=== PATIENT | female | born 1935 | race Asian ===

== ENCOUNTER 2018-07-28 11:56 | Emergency (ER) | payer MEDICARE, OTHER ==
[~2018-07-28] VITALS: Ht 157.5 cm; Wt 65.8 kg
[~2018-07-28 11:56] MED LIST: CALCIUM CITRAT200 MG PO; COZAAR25 MG PO; CRESTOR5 MG PO; METOPROLOL TART50 MG PO; OMEGA 3 FISH O1 EACH PO; PLAVIX75 MG PO; ULTRAM 50MG50 MG PO; VITAMIN D3400 UNIT PO; VITAMIN E200 UNI1 PO
== END 2018-07-28 12:50 | disposition home or self-care (01) ==
LOC: FSED 11:56
DX: L03.312 Cellulitis of back [any part except buttock and flank] (principal); L98.421 Non-pressure chronic ulcer of back limited to breakdown of skin; C44.529 Squamous cell carcinoma of skin of other part of trunk; C44.519 Basal cell carcinoma of skin of other part of trunk; I35.0 Nonrheumatic aortic (valve) stenosis; Z79.02 Long term (current) use of antithrombotics/antiplatelets; Z88.5 Allergy status to narcotic agent; Z88.8 Allergy status to other drugs, medicaments and biological substances
CPT/HCPCS: 99283